=== PATIENT | male | born 1995 | race African-American/Black ===

== ENCOUNTER 2017-01-27 13:51 | Emergency (ER) | payer MEDICAID ==
[~2017-01-27] VITALS: Ht 167.6 cm; Wt 71.0 kg
[2017-01-27] MEDS ORDERED: LIDOCAINE HCL 1% 20ML VIAL (Pyxis) INJ INFIL ONE (14:15)
[2017-01-27] MEDS ORDERED: CEFTRIAXONE SODIUM 250 MG/VIAL IM ONE (14:15)
[2017-01-27] MEDS ORDERED: AZITHROMYCIN 500 MG TABLET PO ONE (14:15)
[2017-01-27 15:52] LABS: CLARITY URINE TURBID (CLEAR); COLOR URINE YELLOW (YELLOW); GLUCOSE URINE NEGATIVE (NEGATIVE); KETONES URINE NEGATIVE (NEGATIVE); LEUKOCYTE ESTERASE URINE 3+ (NEGATIVE); NITRITE URINE NEGATIVE (NEGATIVE); OCCULT BLOOD URINE NEGATIVE (NEGATIVE); PH URINE >=9.0 (4.5-8.0); PROTEIN URINE 1+ (NEGATIVE); SPECIFIC GRAVITY URINE 1.023 (1.005-1.030)
[2017-01-27 16:00] VITALS: BP 121/80
[2017-02-01 07:12] LABS: CHLAMYDIA TRACHOMATIS NAA Positive (Negative); NEISSERIA GONORRHOEAE NAA Positive (Negative)
== END 2017-01-27 16:56 | disposition home or self-care (01) ==
LOC: ER 13:51
DX: N39.0 Urinary tract infection, site not specified (principal); A63.8 Other specified predominantly sexually transmitted diseases; R36.9 Urethral discharge, unspecified
CPT/HCPCS: 81001; 87491; 87591; 96372; 99284; J0696; J3490; Z7610

== ENCOUNTER 2017-07-29 12:04 | Emergency (ER) | payer MEDICAID ==
[~2017-07-29] VITALS: Ht 165.1 cm; Wt 61.0 kg
[2017-07-29] MEDS ORDERED: SODIUM CHLORIDE 0.9% 1,000 ML IV ONE (13:39)
[2017-07-29] MEDS ORDERED: FAMOTIDINE 20MG/2ML VIAL IV STA (13:39)
[2017-07-29] MEDS ORDERED: MAGNESIUM/ALUMINUM HYDROXIDE/SIMETHICONE 30ML UDC PO STA (13:39)
[2017-07-29] MEDS ORDERED: ONDANSETRON HCL 4MG/2ML VIAL IM ONE (14:30)
[2017-07-29] MEDS ORDERED: METOCLOPRAMIDE HCL 10MG/2ML VIAL IV ONE (15:00)
[2017-07-29 15:01] LABS: CHLORIDE 99 mEq/L (98-107)
[2017-07-29 15:07] LABS: BASOPHILS % 0.4 % (0.0-2.0); EOSINOPHILS % 0.1 % (0.0-5.0); HEMATOCRIT. 41.1 % (42.0-52.0); HEMOGLOBIN. 13.8 g/dL (14.0-18.0); LYMPHOCYTES % 15.8 % (20.0-50.0); MEAN CORPUSCULAR HEMOGLOBIN 27.5 pg (28.0-32.0); MEAN CORPUSCULAR VOLUME 82.2 fL (80.0-94.0); MEAN PLATELET VOLUME 8.2 fl (7.4-10.4); MONOCYTES % 4.3 % (2.0-8.0); NEUTROPHILS % 79.4 % (40.0-76.0); PLATELET 280 x1000/uL (130-400)
[2017-07-29 15:28] VITALS: BP 135/68
== END 2017-07-29 15:30 | disposition home or self-care (01) ==
LOC: ER 12:53
DX: R10.13 Epigastric pain (principal)
CPT/HCPCS: 36415; 76705; 80053; 83690; 85025; 93005; 96361; 96374; 96375; 99285; J2765; J3490; J7030; Z7610; J2405

== ENCOUNTER 2018-05-26 11:15 | Emergency (ER) | payer MEDICAID ==
[~2018-05-26] VITALS: Ht 167.6 cm; Wt 61.0 kg
[2018-05-26] MEDS ORDERED: ONDANSETRON HCL 4MG/2ML INJ IV STA (13:08)
[2018-05-26] MEDS ORDERED: SODIUM CHLORIDE 0.9% 1,000 ML IV ONE (13:08)
[2018-05-26] MEDS ORDERED: FAMOTIDINE 20MG/2ML VIAL IV STA (13:08)
[2018-05-26 14:13] LABS: BASOPHILS % 0.4 % (0.0-2.0); HEMATOCRIT. 46.3 % (42.0-52.0); HEMOGLOBIN. 15.1 g/dL (14.0-18.0); LYMPHOCYTES % 11.4 % (20.0-50.0); MEAN CORPUSCULAR HEMOGLOBIN 27.6 pg (28.0-32.0); MEAN CORPUSCULAR VOLUME 84.6 fL (80.0-94.0); MEAN PLATELET VOLUME 8.1 fl (7.4-10.4); MONOCYTES % 2.2 % (2.0-8.0); PLATELET 242 x1000/uL (130-400); RED BLOOD CELL COUNT 5.48 mill/uL (4.7-6.1); RED CELL DISTRIBUTION WIDTH 13.9 % (11.6-14.6)
[2018-05-26 14:20] LABS: CHLORIDE 103 mEq/L (98-107)
[2018-05-26 14:32] LABS: CLARITY URINE CLEAR (CLEAR); COLOR URINE YELLOW (YELLOW); KETONES URINE 3+ (NEGATIVE); LEUKOCYTE ESTERASE URINE TRACE (NEGATIVE); NITRITE URINE NEGATIVE (NEGATIVE); OCCULT BLOOD URINE NEGATIVE (NEGATIVE); PH URINE 7.5 (4.5-8.0); PROTEIN URINE TRACE (NEGATIVE); SPECIFIC GRAVITY URINE 1.034 (1.005-1.030); UROBILINOGEN URINE 0.2 E.U./dL (0.2-1.0)
[2018-05-26] MEDS ORDERED: KETOROLAC 15MG/ML VIAL IV ONE (15:30)
[2018-05-26 15:33] LABS: INR 1.2; PROTHROMBIN TIME 11.6 sec (9.1-11.1)
[2018-05-26 16:26] VITALS: BP 108/77
== END 2018-05-26 16:24 | disposition home or self-care (01) ==
LOC: ER 13:05
DX: R10.33 Periumbilical pain (principal)
CPT/HCPCS: 36415; 80053; 81003; 83690; 85025; 85610; 96361; 96374; 96375; 99283; J2405; J3490; J7030

== ENCOUNTER 2020-09-10 16:07 | Emergency (ER) | payer MEDICAID ==
[~2020-09-10] VITALS: Ht 165.1 cm; Wt 62.0 kg
[2020-09-10 16:10] VITALS: BP 135/49
[2020-09-10] MEDS ORDERED: IBUP-2029 MT (17:06)
[2020-09-10] MEDS ORDERED: ACET650T37 MT (17:06)
== END 2020-09-10 17:23 | disposition home or self-care (01) ==
LOC: ER 16:07
DX: M25.562 Pain in left knee (principal); R03.0 Elevated blood-pressure reading, without diagnosis of hypertension
CPT/HCPCS: 73560; 99283

== ENCOUNTER 2022-02-09 09:26 | Emergency (ER) | payer MEDICAID ==
[~2022-02-09] VITALS: Ht 167.6 cm; Wt 68.0 kg
[~2022-02-09 09:26] MED LIST: ACET-3163 MT; IBUP-2029 MT
[2022-02-09] MEDS ORDERED: MORPHINE SULFATE 4 MG/ML CPJ (NOT FOR IM USE) IV STA (10:30)
[2022-02-09] MEDS ORDERED: SODIUM CHLORIDE 0.9% 1,000 ML IV ONE (10:30)
[2022-02-09] MEDS ORDERED: PANTOPRAZOLE SODIUM 40 MG/VIAL IV STA (10:30)
[2022-02-09] MEDS ORDERED: ONDANSETRON HCL 4MG/2ML INJ IV STA (10:30)
[2022-02-09 11:05] LABS: BASOPHILS % 0.7 % (0.0-2.0); EOSINOPHILS % 0.3 % (0.0-5.0); HEMATOCRIT. 45.6 % (42.0-52.0); LYMPHOCYTES % 25.1 % (20.0-50.0); MEAN CORPUSCULAR HEMOGLOBIN 27.7 pg (28.0-32.0); MEAN PLATELET VOLUME 7.7 fl (7.4-10.4); MONOCYTES % 4.6 % (2.0-8.0); NEUTROPHILS % 69.3 % (40.0-76.0); PLATELET 278 x1000/uL (130-400); RED BLOOD CELL COUNT 5.43 mill/uL (4.7-6.1); RED CELL DISTRIBUTION WIDTH 13.6 % (11.6-14.6)
[2022-02-09 11:12] LABS: CHLORIDE 99 mEq/L (98-107)
[2022-02-09 11:21] LABS: PROTHROMBIN TIME 10.9 sec (9.6-11.0)
[2022-02-09] MEDS ORDERED: POTASSIUM CHLORIDE 20MEQ TABLET SR PO ONE (11:30)
[2022-02-09] MEDS ORDERED: ONDA4TAB50 MT (15:18)
[2022-02-09] MEDS ORDERED: PROT40 MT (15:18)
[2022-02-09] MEDS ORDERED: MAG-55 MT (15:18)
[2022-02-09 15:45] VITALS: BP 131/83
== END 2022-02-09 16:05 | disposition home or self-care (01) ==
LOC: ER 09:26 → EDBEDREQTM 13:19 → ER 16:05 → CANBEDREQ 02-10 09:15
DX: K92.0 Hematemesis (principal); K92.1 Melena; R07.89 Other chest pain; F17.210 Nicotine dependence, cigarettes, uncomplicated; Z71.6 Tobacco abuse counseling
CPT/HCPCS: 36415; 71045; 80053; 82270; 83690; 85025; 85610; 86850; 86900; 86901; 96361; 96374; 96375; 99285; 99406; C9113; J2270; J2405; J7030

== ENCOUNTER 2024-07-21 13:03 | Emergency (ER) | payer MEDICAID ==
[~2024-07-21] VITALS: Ht 167.6 cm; Wt 65.7 kg
[~2024-07-21 13:03] MED LIST changes: +MAG-55 MT; +ONDA4TAB50 MT; +PROT40 MT
[2024-07-21 13:18] VITALS: BP 139/79; PULSE 97; RESP 16; TEMP 36.9; O2SAT 100; O2SAT 97
[2024-07-21 15:10] LABS: BASOPHILS % 0.5 % (0.0-2.0); EOSINOPHILS % 0.1 % (0.0-5.0); HEMATOCRIT. 40.6 % (42.0-52.0); HEMOGLOBIN. 13.2 g/dL (14.0-18.0); LYMPHOCYTES % 25.4 % (20.0-50.0); MEAN CORPUSCULAR HEMOGLOBIN 27.3 pg (28.0-32.0); MEAN CORPUSCULAR HGB CONC 32.6 g/dL (31.0-37.0); MEAN CORPUSCULAR VOLUME 83.7 fL (80.0-94.0); MONOCYTES % 6.6 % (2.0-8.0); NEUTROPHILS % 67.4 % (40.0-76.0); PLATELET 298 x1000/uL (130-400); RED BLOOD CELL COUNT 4.85 mill/uL (4.7-6.1); RED CELL DISTRIBUTION WIDTH 14.2 % (11.6-14.6); WHITE BLOOD COUNT 12.9 x1000/uL (4.5-11.0)
[2024-07-21 15:19] LABS: CARBON DIOXIDE 31 mEq/L (21-32); CHLORIDE 102 mEq/L (98-107); POTASSIUM 3.3 mEq/L (3.5-5.1); SODIUM 140 mEq/L (136-145)
[2024-07-21 15:20] LABS: CALCIUM 9.5 mg/dL (8.7-10.4)
[2024-07-21 15:25] LABS: CREATININE 0.7 mg/dL (0.6-1.3); GLUCOSE 98 mg/dL (70-105); UREA NITROGEN BLOOD 13 mg/dL (9-23)
[2024-07-21 15:27] LABS: ALANINE AMINOTRANSFERASE 8 IU/L (10-49); ALBUMIN 4.6 g/dL (3.2-4.8); ASPARTATE AMINOTRANSFERASE 10 IU/L (<34); BILIRUBIN TOTAL 0.3 mg/dL (0.1-1.0); PROTEIN TOTAL 7.7 g/dL (6.0-8.3)
== END 2024-07-21 19:00 | disposition left against medical advice (07) ==
LOC: ER 13:03
DX: R11.2 Nausea with vomiting, unspecified (principal); Z53.21 Procedure and treatment not carried out due to patient leaving prior to being seen by health care provider
CPT/HCPCS: 36415; 80053; 85025